=== PATIENT | male | born 1955 | race Hispanic/Latino ===

== ENCOUNTER 2017-07-21 07:42 | Emergency (ER) | payer MEDICARE ==
[2017-07-21 07:49] VITALS: BMI 21.7
--- NOTE | 2017-07-21 08:09 | ED PDOC ---
Arrival/HPI - General Chief Complaint: Trauma Time Seen by Provider: 07/21/17 08:00 Historian: Patient - History of Present Illness Narrative History of Present Illness (Text): 07/21/17 08:00 Gera Mckenzie is a 62 year old male whose past medical history includes hypertension, who presents to the emergency department complaining of a head injury for the past 3 days. Patient reports he was home when he got up quick and hit his head on the counter of his kitchen. He began to feel lightheaded, nauseous, and was vomiting. Last episode of vomit was this morning. No other complaints were made. Patient did not lose consciousness. Time/Duration: < week Symptom Onset: Sudden Symptom Course: Unchanged Activities at Onset: Light Context: Home Past Medical History - Provider Review Nursing Documentation Reviewed: Yes - Infectious Disease Hx of Infectious Diseases: None - Tetanus Immunization Tetanus Immunization: Unknown - Cardiac Hx Hypertension: Yes - Psychiatric Hx Depression: Yes Hx Emotional Abuse: No Hx Physical Abuse: No Hx Substance Use: No Other/Comment: Insomnia - Anesthesia Hx Anesthesia: No - Suicidal Assessment Feels Threatened In Home Enviroment: No Family/Social History - Physician Review Nursing Documentation Reviewed: Yes Family/Social History: Unknown Family HX Smoking Status: Light Smoker < 10 Cigarettes Daily Hx Alcohol Use: Yes Hx Substance Use: No Hx Substance Use Treatment: Yes (1ppd) Allergies/Home Meds Allergies/Adverse Reactions: Allergies haloperidol [From Haldol] Adverse Reaction (Verified 07/21/17 07:55) NAUSEA Home Medications: Home Meds Medication Instructions Recorded Confirmed Ziprasidone [Geodon Cap] 1 tab PO BID 08/09/13 07/21/17 Review of Systems - Review of Systems Constitutional: absent: Fevers Eyes: absent: Vision Changes Respiratory: absent: SOB Cardiovascular: absent: Chest Pain Gastrointestinal: Nausea, Vomiting. absent: Abdominal Pain, Diarrhea Genitourinary Male: absent: Dysuria, Frequency Musculoskeletal: absent: Back Pain Skin: Other (abrasion on right side of forehead ) Neurological: Dizziness Endocrine: absent: Polyuria Physical Exam Vital Signs Reviewed: Yes Vital Signs Temp Pulse Resp BP Pulse Ox 07/21/17 08:56 99 H 18 104/58 L 95 07/21/17 07:42 98.2 F 99 H 17 106/68 95 Appearance: Positive for: Well-Appearing, Non-Toxic, Comfortable Pain Distress: None Mental Status: Positive for: Alert and Oriented X 3 - Systems Exam Head: Present: Atraumatic, Normocephalic, Swelling (minimal swelling), Abrasion (large right forehead abrasion. minimal swelling. no tenderness). No: Tenderness Pupils: Present: PERRL Extroacular Muscles: Present: EOMI Conjunctiva: Present: Normal Mouth: Present: Moist Mucous Membranes Nose (External): Present: Atraumatic Neurological: Present: GCS=15, CN II-XII Intact, Speech Normal, Normal Sensory Function, Gait Normal Skin: Present: Warm, Dry, Normal Color, Abrasion (large right forehead abrasion. minimal swelling. no tenderness). No: Rashes Psychiatric: Present: Alert, Oriented x 3, Normal Insight, Normal Concentration Medical Decision Making ED Course and Treatment: 07/21/17 Impression: 62 year old male with large right forehead abrasion. minimal swelling. no tenderness. Plan: -- CT head without contrast -- Zofran -- Reassess and disposition Progress Notes: 07/21/17 08:[address]: Creator : DR. Ortiz, Cortney TY FINDINGS: HEMORRHAGE: No intracranial hemorrhage. BRAIN: No mass effect or edema. Intracranial atherosclerosis. No atrophy or chronic microvascular ischemic changes. Please note that MRI with diffusion imaging is more sensitive in the detection of acute ischemic event. VENTRICLES: No hydrocephalus. CALVARIUM: Unremarkable. PARANASAL SINUSES: Unremarkable as visualized. No significant inflammatory changes. MASTOID AIR CELLS: Unremarkable as visualized. No inflammatory changes. OTHER FINDINGS: None. IMPRESSION: No acute intracranial pathology identified. 07/21/17 12:11 Patient is mentally challenged. CT scan shows no acute findings. He will be discharged with Zofran for his nausea. - RAD Interpretation Radiology Orders: 07/21/17 08:06 HEAD W/O CONTRAST [CT] Stat CT scan of the head as read by the radiologist shows no acute findings. Alteration Hand: Radiologist - Medication Orders Current Medication Orders: Discontinued Medications Ondansetron HCl (Zofran Odt) 4 mg PO STAT STA Stop: 07/21/17 08:07 Last Admin: 07/21/17 08:11 Dose: 4 mg - Scribe Statement The provider has reviewed the documentation as recorded by the Ilir Lee Provider Scribe Attestation: All medical record entries made by the Scribe were at my direction and personally dictated by me. I have reviewed the chart and agree that the record accurately reflects my personal performance of the history, physical exam, medical decision making, and the department course for this patient. I have also personally directed, reviewed, and agree with the discharge instructions and disposition. Disposition/Present on Arrival - Present on Arrival Any Indicators Present on Arrival: No History of DVT/PE: No History of Uncontrolled Diabetes: No Urinary Catheter: No History of Decub. Ulcer: No History Surgical Site Infection Following: None - Disposition Have Diagnosis and Disposition been Completed?: Yes Diagnosis: Head contusion, Concussion Disposition: HOME/ ROUTINE Disposition Time: 08:42 Patient Plan: Discharge Condition: GOOD Discharge Instructions (ExitCare): Concussion (ED), Head Injury (ED) Additional Instructions: Tylenol or Advil as directed on bottle as needed. Follow-up with PMD. Follow up in ER as needed. Referrals: Harsh Sanchez MD [Primary Care Provider] - Follow up with primary Forms: [employer] (Bulgarian)
--- NOTE | 2017-07-21 08:37 | CT ---
PROCEDURE: CT HEAD WITHOUT CONTRAST. HISTORY: trauma COMPARISON: None available. TECHNIQUE: Axial computed tomography images were obtained through the head/brain without intravenous contrast. Radiation dose: Total exam DLP = 629.69 mGy-cm. This CT exam was performed using one or more of the following dose reduction techniques: Automated exposure control, adjustment of the mA and/or kV according to patient size, and/or use of iterative reconstruction technique. FINDINGS: HEMORRHAGE: No intracranial hemorrhage. BRAIN: No mass effect or edema. Intracranial atherosclerosis. No atrophy or chronic microvascular ischemic changes. Please note that MRI with diffusion imaging is more sensitive in the detection of acute ischemic event. VENTRICLES: No hydrocephalus. CALVARIUM: Unremarkable. PARANASAL SINUSES: Unremarkable as visualized. No significant inflammatory changes. MASTOID AIR CELLS: Unremarkable as visualized. No inflammatory changes. OTHER FINDINGS: None. IMPRESSION: No acute intracranial pathology identified.
[2017-07-21 08:56] VITALS: PULSE 99; TEMP 98.2; O2SAT 95
[2017-07-21 08:57] VITALS: BP 104/58; RESP 18
== END 2017-07-21 09:08 | disposition home or self-care (01) ==
LOC: ED 07:42
DX: S06.0X0A Concussion without loss of consciousness, initial encounter (principal); W22.8XXA Striking against or struck by other objects, initial encounter; Y92.000 Kitchen of unspecified non-institutional (private) residence as the place of occurrence of the external cause

== ENCOUNTER 2018-08-22 16:54 | Emergency (ER) | payer MEDICARE ==
[2018-08-22 16:57] VITALS: BMI 23.5
--- NOTE | 2018-08-22 17:37 | ED PDOC ---
Arrival/HPI - General Chief Complaint: Abnormal Skin Integrity Time Seen by Provider: 08/22/18 17:20 Historian: Patient - History of Present Illness Narrative History of Present Illness (Text): 08/22/18 17:36 63 year old male, whose past medical history includes hypertension, presents to the emergency department complaining of abscess to the left armpit that he noted 10 days ago. Patient reports it is infected and noted that he tried draining it himself using a needle 2 days. He also stated that he has a history of abscess in the past noted in the right armpit and neck. Patient also noted his blood pressure was elevated. Patient denies any fever, chills, chest pain, shortness of breath, nausea, vomiting, diarrhea, urinary symptoms, back pain, neck pain, headache, dizziness, or any other complaints. PMD: Dr. Sanchez Time/Duration: Other (10 days) Symptom Onset: Gradual Symptom Course: Unchanged Activities at Onset: Light Context: Home Past Medical History - Provider Review Nursing Documentation Reviewed: Yes - Infectious Disease Hx of Infectious Diseases: None - Tetanus Immunization Tetanus Immunization: Unknown - Cardiac Hx Hypertension: Yes - Psychiatric Hx Depression: Yes Hx Substance Use: No Other/Comment: Insomnia - Anesthesia Hx Anesthesia: No - Suicidal Assessment Feels Threatened In Home Enviroment: No Family/Social History - Physician Review Nursing Documentation Reviewed: Yes Family/Social History: No Known Family HX Smoking Status: Former Smoker Hx Alcohol Use: No Hx Substance Use: No Hx Substance Use Treatment: Yes (1ppd) Allergies/Home Meds Allergies/Adverse Reactions: Allergies haloperidol [From Haldol] Adverse Reaction (Verified 07/21/17 07:55) NAUSEA Review of Systems - Physician Review All systems were reviewed & negative as marked: Yes - Review of Systems Constitutional: absent: Fevers, Other (Chills) Respiratory: absent: SOB Cardiovascular: absent: Chest Pain Gastrointestinal: absent: Diarrhea, Nausea, Vomiting Genitourinary Male: absent: Dysuria, Frequency, Hematuria Musculoskeletal: absent: Back Pain, Neck Pain Neurological: absent: Headache, Dizziness Physical Exam Vital Signs Reviewed: Yes Vital Signs Temp Pulse Resp BP Pulse Ox 08/22/18 16:54 97 F L 95 H 18 169/84 H 97 Temperature: Afebrile Blood Pressure: Hypertensive Pulse: Regular Respiratory Rate: Normal Appearance: Positive for: Well-Appearing, Non-Toxic, Comfortable, Cachectic Pain Distress: None Mental Status: Positive for: Alert and Oriented X 3 - Systems Exam Head: Present: Atraumatic, Normocephalic Pupils: Present: PERRL Extroacular Muscles: Present: EOMI Conjunctiva: Present: Normal Mouth: Present: Moist Mucous Membranes Neck: Present: Normal Range of Motion Respiratory/Chest: Present: Clear to Auscultation, Good Air Exchange. No: Respiratory Distress, Accessory Muscle Use Cardiovascular: Present: Regular Rate and Rhythm, Normal S1, S2. No: Murmurs Upper Extremity: Present: Other (Multiple indurated lesions noted to the left axilla. Purulent discharge noted. No areas of fluctuant tenderness. ). No: Cyanosis, Edema Lower Extremity: Present: Normal Inspection. No: Edema Neurological: Present: GCS=15, CN II-XII Intact, Speech Normal Skin: Present: Warm, Dry, Normal Color. No: Rashes Psychiatric: Present: Alert, Oriented x 3, Normal Insight, Normal Concentration Medical Decision Making ED Course and Treatment: 08/22/18 17:37 Impression: 63 year old male presents complaining of abscess to the left armpit noted 10 days ago and elevated blood pressure today. Differential Diagnosis included but are not limited to: Hidradenitis asymptomatic hypertension Plan: -- Wade Guevara -- Reassess and disposition Prior Visits: Notes and results from previous visits were reviewed. Progress Notes: - Scribe Statement The provider has reviewed the documentation as recorded by the Ilir Chery Provider Scribe Attestation: All medical record entries made by the Ilir were at my direction and personally dictated by me. I have reviewed the chart and agree that the record accurately reflects my personal performance of the history, physical exam, medical decision making, and the department course for this patient. I have also personally directed, reviewed, and agree with the discharge instructions and disposition. Disposition/Present on Arrival - Present on Arrival Any Indicators Present on Arrival: No History of DVT/PE: No History of Uncontrolled Diabetes: No Urinary Catheter: No History of Decub. Ulcer: No History Surgical Site Infection Following: None - Disposition Have Diagnosis and Disposition been Completed?: Yes Diagnosis: Hidradenitis axillaris, Asymptomatic hypertension Disposition: HOME/ ROUTINE Disposition Time: 18:21 Patient Plan: Discharge Condition: STABLE Discharge Instructions (ExitCare): Hidradenitis Suppurativa, High Blood Pressure (DC) Print Language: LITHUANIAN Additional Instructions: All medical record entries made by the Scribe were at my direction and personally dictated by me. I have reviewed the chart and agree that the record accurately reflects my personal performance of the history, physical exam, medical decision making, and the department course for this patient. I have also personally directed, reviewed, and agree with the discharge instructions and disposition. Please follow up with your PCP in 3-5 days Use warm compresses on your armpit to help decrease swelling Prescriptions: Clindamycin [Cleocin] 300 mg PO TID 10 Days #30 cap Referrals: Randee Berry MD [Staff Provider] - Follow up with primary Dashawn Schneider MD [Staff Provider] - Follow up with primary Forms: [employer] (Polish)
[2018-08-22 18:36] VITALS: BP 160/80; PULSE 75; RESP 19; TEMP 98; O2SAT 98
== END 2018-08-22 18:42 | disposition home or self-care (01) ==
LOC: ED 16:54
DX: L73.2 Hidradenitis suppurativa (principal); I10 Essential (primary) hypertension; Z87.891 Personal history of nicotine dependence